=== PATIENT | male | born 1995 | race Caucasian/White ===

== ENCOUNTER 2020-09-28 21:55 | Emergency (ER) | payer OTHER ==
[~2020-09-28] VITALS: Ht 188 cm; Wt 81.7 kg
[2020-09-29 00:42] VITALS: BP 120/72
== END 2020-09-29 00:42 | disposition home or self-care (01) ==
LOC: M.ERS 21:55
DX: S63.286A Dislocation of proximal interphalangeal joint of right little finger, initial encounter (principal); W20.8XXA Other cause of strike by thrown, projected or falling object, initial encounter; Y93.89 Activity, other specified; Y92.89 Other specified places as the place of occurrence of the external cause; Y99.9 Unspecified external cause status